=== PATIENT | female | born 1955 | race African-American/Black ===

== ENCOUNTER 2022-06-26 19:10 | Emergency (ER) | payer OTHER ==
[~2022-06-26] VITALS: Ht 170.2 cm; Wt 71.5 kg
[2022-06-26 20:31] LABS: Basophils # (auto) 0 10 ^3/uL (0-0.2); Basophils % (auto) 0.5 % (0.0-2.0); Eosinophils # (auto) 0.2 10 ^3/uL (0-0.8); Eosinophils % (auto) 1.7 % (0.0-7.0); Hemoglobin 13.9 g/dL (12.2-16.2); Lymphocytes # (auto) 3.4 10 ^3/uL (0.4-5.4); Lymphocytes % (auto) 37.4 % (10.0-50.0); Mean Corpuscular Hemoglobin 26.7 pg (28.0-32.0); Mean Corpuscular Volume 78.7 fL (80.0-100.0); Monocytes # (auto) 0.6 10 ^3/uL (0-1.3); Monocytes % (auto) 6.7 % (0.0-12.0); Neutrophils # (auto) 4.9 10 ^3/uL (1.6-8.6); Neutrophils % (auto) 53.7 % (37.0-80.0); Nucleated Red Blood Cells % 0.1 %; Red Blood Cells 5.21 10^6/uL (4.0-5.20); Red Cell Distribution Width 16.1 % (11.8-14.3); White Blood Cell 9.1 10^3/uL (4.4-10.8)
[2022-06-26 20:40] LABS: INR 1.02 (0.9-1.15); Partial Thromboplastin Time 26.4 sec (24.6-33.4)
[2022-06-26 20:53] LABS: Magnesium 2.2 mg/dL (1.6-2.6)
[2022-06-26 20:56] LABS: Urine Bacteria MOD /hpf (None Seen); Urine Blood Negative /uL (Negative); Urine Mucus FEW (None Seen); Urine Specific Gravity 1.021 (1.001-1.035); Urine WBC 1 /hpf (0 - 5)
[2022-06-26 20:59] LABS: Albumin 3.5 g/dL (3.4-5.0); BUN/Creatinine Ratio 12.2; Bilirubin, Total 0.2 mg/dL (0.2-1.0); Calcium 8.9 mg/dL (8.5-10.1); Total Protein 7.6 g/dL (6.4-8.2)
[2022-06-26] MEDS ORDERED: DICY10CA PO (22:28)
[2022-06-26] MEDS ORDERED: DICYCLOMINE HCL (10MG/ML) 2 ML AMPULE IM ONE (22:30)
[2022-06-26 23:13] VITALS: BP 145/80
== END 2022-06-26 23:21 | disposition home or self-care (01) ==
LOC: ER 19:10
DX: K80.20 Calculus of gallbladder without cholecystitis without obstruction (principal)
CPT/HCPCS: 36415; 71045; 74176; 80053; 81001; 82150; 83690; 83735; 85025; 85610; 85730; 93005; 96372; 99285; J0500

== ENCOUNTER 2022-07-01 09:58 | Emergency (ER) | payer OTHER ==
[~2022-07-01] VITALS: Ht 170.2 cm; Wt 72.0 kg
[~2022-07-01 09:58] MED LIST: DICY10CA PO
[2022-07-01 10:54] LABS: Basophils # (auto) 0 10 ^3/uL (0-0.2); Eosinophils # (auto) 0.1 10 ^3/uL (0-0.8); Lymphocytes # (auto) 2.7 10 ^3/uL (0.4-5.4); Nucleated Red Blood Cells % 0.1 %
[2022-07-01 10:56] LABS: Basophils % (auto) 0.5 % (0.0-2.0); Hematocrit 41.2 % (36.0-46.0); Mean Corpuscular Hemoglobin 26.5 pg (28.0-32.0); Mean Corpuscular Hgb Conc. 33.9 g/dL (32.0-36.0); Mean Corpuscular Volume 78.2 fL (80.0-100.0); Monocytes # (auto) 0.6 10 ^3/uL (0-1.3); Monocytes % (auto) 7.5 % (0.0-12.0); Neutrophils # (auto) 4.1 10 ^3/uL (1.6-8.6); Red Blood Cells 5.28 10^6/uL (4.0-5.20); Red Cell Distribution Width 15.9 % (11.8-14.3); White Blood Cell 7.5 10^3/uL (4.4-10.8)
[2022-07-01 10:57] LABS: Albumin 3.7 g/dL (3.4-5.0); Calcium 8.8 mg/dL (8.5-10.1); Potassium 4.3 mmol/L (3.5-5.1)
[2022-07-01 11:01] LABS: BUN/Creatinine Ratio 8.2; Bilirubin, Total 0.3 mg/dL (0.2-1.0); Total Protein 7.4 g/dL (6.4-8.2)
[2022-07-01 13:19] VITALS: BP 127/84
[2022-07-01] MEDS ORDERED: HYDROcodone-ACET 5/325MG TAB PO ONE (15:00)
== END 2022-07-01 14:17 | disposition home or self-care (01) ==
LOC: ER 09:58
DX: K80.20 Calculus of gallbladder without cholecystitis without obstruction (principal)
CPT/HCPCS: 36415; 76705; 80053; 83690; 85025; 93005

== ENCOUNTER 2023-11-26 23:41 | Emergency (ER) | payer OTHER ==
[~2023-11-26] VITALS: Ht 170.2 cm; Wt 72.7 kg
[2023-11-26 23:46] VITALS: BP 154/91; PULSE 93; RESP 18; O2SAT 97
== END 2023-11-27 01:48 | disposition left against medical advice (07) ==
LOC: ER 23:41
DX: M79.602 Pain in left arm (principal); M79.601 Pain in right arm; Z53.21 Procedure and treatment not carried out due to patient leaving prior to being seen by health care provider

== ENCOUNTER 2024-05-05 20:45 | Emergency (ER) | payer OTHER ==
[~2024-05-05] VITALS: Ht 170.2 cm; Wt 70.5 kg
[2024-05-05 22:23] LABS: COVID19 ANTIGEN SOFIA FIA NEGATIVE (NEGATIVE)
[2024-05-05 22:25] LABS: Rapid Influenza A Negative (Negative); Rapid Influenza B Negative (Negative)
[2024-05-06 01:00] VITALS: BP 130/76; PULSE 78; RESP 18; TEMP 98.2; O2SAT 97
== END 2024-05-06 02:05 | disposition home or self-care (01) ==
LOC: ER 20:45
DX: B34.9 Viral infection, unspecified (principal); J44.9 Chronic obstructive pulmonary disease, unspecified; Z20.822 Contact with and (suspected) exposure to COVID-19; Z79.899 Other long term (current) drug therapy
CPT/HCPCS: 36415; 71046; 87426; 87804

== ENCOUNTER 2024-08-01 08:16 | Emergency (ER) | payer OTHER ==
[~2024-08-01] VITALS: Ht 170.2 cm; Wt 70.8 kg
[2024-08-01 08:47] VITALS: BP 141/90; PULSE 90; RESP 17; TEMP 98.3; O2SAT 97
[2024-08-01 09:31] LABS: Basophils # (auto) 0.1 10 ^3/uL (0-0.2); Basophils % (auto) 0.8 % (0.0-2.0); Eosinophils # (auto) 0.1 10 ^3/uL (0-0.8); Eosinophils % (auto) 1.2 % (0.0-7.0); Hematocrit 43.9 % (36.0-46.0); Hemoglobin 14.9 g/dL (12.2-16.2); Lymphocytes # (auto) 3.4 10 ^3/uL (0.4-5.4); Lymphocytes % (auto) 42.4 % (10.0-50.0); Mean Corpuscular Volume 79.2 fL (80.0-100.0); Monocytes # (auto) 0.4 10 ^3/uL (0-1.3); Monocytes % (auto) 5.3 % (0.0-12.0); Neutrophils % (auto) 50.3 % (37.0-80.0); Nucleated Red Blood Cells % 0.2 %; Platelet Count (auto) 242 10^3/uL (140-450); Red Blood Cells 5.53 10^6/uL (4.0-5.20); Red Cell Distribution Width 16.4 % (11.8-14.3); White Blood Cell 7.9 10^3/uL (4.4-10.8)
[2024-08-01 09:35] LABS: Chloride 105 mmol/L (98-107); Potassium 4.2 mmol/L (3.5-5.1); Sodium 140 mmol/L (136-145)
[2024-08-01 09:36] LABS: Anion Gap 7 (5-15); Calcium 10.3 mg/dL (8.7-10.4); Carbon Dioxide 28 mmol/L (20-31)
[2024-08-01 09:41] LABS: BUN/Creatinine Ratio 6.2 (10.0-20.0); Blood Urea Nitrogen 5 mg/dL (9-23); Glucose 131 mg/dL (74-106)
[2024-08-01 10:34] LABS: Urine Bacteria MOD /hpf (None Seen); Urine Blood Negative /uL (Negative); Urine Clarity Clear (Clear); Urine Color Light-Yellow (Yellow); Urine Protein, UAD Negative (Negative); Urine Specific Gravity 1.009 (1.001-1.035); Urine Urobilinogen Normal (Negative); Urine WBC <1 /hpf (0 - 5); Urine pH 5.5 (5.0-9.0)
[2024-08-01] MEDS ORDERED: BACDST PO (10:41)
== END 2024-08-01 10:50 | disposition home or self-care (01) ==
LOC: ER 08:16
DX: L02.92 Furuncle, unspecified (principal); Z48.00 Encounter for change or removal of nonsurgical wound dressing; E11.9 Type 2 diabetes mellitus without complications; E07.9 Disorder of thyroid, unspecified; J44.9 Chronic obstructive pulmonary disease, unspecified; Z79.899 Other long term (current) drug therapy
CPT/HCPCS: 36415; 80048; 81001; 85025

== ENCOUNTER 2025-02-05 17:04 | Emergency (ER) | payer OTHER ==
[~2025-02-05] VITALS: Ht 165.1 cm; Wt 65.0 kg
[~2025-02-05 17:04] MED LIST changes: +BACDST PO
[2025-02-05 18:02] LABS: Basophils # (auto) 0.1 10 ^3/uL (0-0.2); Basophils % (auto) 0.6 % (0.0-2.0); Eosinophils # (auto) 0.1 10 ^3/uL (0-0.8); Eosinophils % (auto) 1.5 % (0.0-7.0); Hematocrit 45.5 % (36.0-46.0); Hemoglobin 16.1 g/dL (12.2-16.2); Lymphocytes # (auto) 3.9 10 ^3/uL (0.4-5.4); Lymphocytes % (auto) 45.2 % (10.0-50.0); Mean Corpuscular Hemoglobin 27.4 pg (28.0-32.0); Mean Corpuscular Hgb Conc. 35.3 g/dL (32.0-36.0); Mean Corpuscular Volume 77.4 fL (80.0-100.0); Monocytes # (auto) 0.7 10 ^3/uL (0-1.3); Monocytes % (auto) 8.6 % (0.0-12.0); Neutrophils # (auto) 3.8 10 ^3/uL (1.6-8.6); Neutrophils % (auto) 44.1 % (37.0-80.0); Nucleated Red Blood Cells % 0.5 %; Platelet Count (auto) 216 10^3/uL (140-450); Red Blood Cells 5.88 10^6/uL (4.0-5.20); Red Cell Distribution Width 16.9 % (11.8-14.3); White Blood Cell 8.6 10^3/uL (4.4-10.8)
[2025-02-05] MEDS: MORPHINE SULFATE 4 MG/ML SYR/VIAL IV ONE (18:16)
[2025-02-05] MEDS: DICYCLOMINE HCL (10MG/ML) 2 ML AMPULE IM ONE (18:16)
[2025-02-05 18:17] LABS: Alanine Aminotransferase 29 U/L (7-40); Albumin 4.8 g/dL (3.2-4.8); Anion Gap 8 (5-15); Aspartate Aminotransferase 24 U/L (13-40); BUN/Creatinine Ratio 10.3 (10.0-20.0); Carbon Dioxide 25 mmol/L (20-31); Glucose 92 mg/dL (74-106); Potassium 4.3 mmol/L (3.5-5.1); Sodium 140 mmol/L (136-145); Total Protein 8.1 g/dL (5.7-8.2)
[2025-02-05] MEDS: ONDANSETRON HCL 4 MG/2 ML VIAL IV ONE (18:17)
[2025-02-05 18:18] LABS: Bilirubin, Total 0.6 mg/dL (0.2-1.0)
[2025-02-05 18:36] LABS: Alkaline Phosphatase 144 U/L (46-116); Blood Urea Nitrogen 7 mg/dL (9-23); Calcium 10.7 mg/dL (8.7-10.4); Chloride 107 mmol/L (98-107)
--- NOTE | 2025-02-05 18:54 | ED.PDOC ---
History of Present Illness HPI Comments 69 y/o F is BIBA for c/o severe lower abdominal pain that radiates to her left lower quadrant starting this morning. Patient describes pain a 10/10 in severity, feeling sena to labor contractions and having no prior history of similar symptoms in the past. Patient states her last bowel movement was this morning and was normal. Patient states she was seen at urgent care earlier today, ultrasound was performed that was nondiagnostic, and was also told that there was some fluid discharge from her umbilical area. She was not aware of the fluid discharge prior to today. Denies any fever, nausea, vomiting or dysuria. She has a history that includes: brain aneurysm, chronic constipation, COPD, DMII, HLD, HTN, cholecystectomy, hernia repair, and hysterectomy. Chief Complaint: Abdominal Pain Time Seen by MD: 17:00 Primary Care Provider: JENNIFER Land Notes: Nurses Notes, Medications, Allergies Allergies: Coded Allergies: NO KNOWN ALLERGIES (Unverified , 07/01/22) Home Meds Active Scripts Sulfamethoxazole W/Trimethopri (Bactrim Ds Tablet) 1 Tab Tb, 1 TAB PO BID for 7 Days, #14 TAB 0 Refills Prov:DANIELLA SARAH MANAGER [facility] 08/01/24 Dicyclomine Hcl (BENTYL CAPSULE) 10 Mg Cp, 1 CAP PO Q6HPRN, #30 CAP 3 Refills Prov:JEREMY BRENNER DO 06/26/22 Information Source: Patient Mode of Arrival: EMS Severity: Moderate Timing: Hours Duration: Since onset Prehospital treatment: 12 Lead EKG, 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, 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 Past Medical History PAST MEDICAL HISTORY: COPD, DM (type II), High Lipids, HTN Past Medical History (Other): chronic constipation brain aneurysm Surgical History: Cholecystectomy, Hernia Repair, Hysterectomy MEDICAL INSURANCE VERIFIER History: No Pertinent MEDICAL INSURANCE VERIFIER History Family History Family History: Reviewed,noncontributory to illness, Unknown Social History Smoker: Non-Smoker Alcohol: Denies ETOH Use Drugs: Denies Drug Use All Other Systems: Reviewed and Negative (Comprehensive systems review obtained and negative except for what is stated in the HPI.) Physical Exam General Appearance: Moderate Distress HEENT: Other (Pupils and face symmetric. Moist mucous membranes.) Neck: Full Range of Motion, Normal Inspection Respiratory: Lungs Clear, No Accessory Muscle Use, No Respiratory Distress, Normal Breath Sounds Cardiovascular: No Edema, No JVD, Regular Rate/Rhythm Breast Exam: Deferred Gastrointestinal: Soft, Tenderness (Suprapubic and left lower quadrant tenderness to palpation. No rebound or guarding. No tenderness to percussion. Minimal clear fluid discharge from umbilical area.) Genitalia: Deferred Pelvic: Deferred Rectal: Deferred Extremities: Normal inspection, Normal range of motion, Non-tender, No pedal edema Neurologic: Alert (Oriented x4), Normal Affect, Normal Mood Cerebellar Function: NOT DONE Reflexes: NOT DONE Skin: Dry, Normal Color, Warm Lymphatic: NOT DONE Was a procedure done? Was a procedure done?: No Differential Dx Considerations may include: Constipation, bowel obstruction, gastroenteritis, colitis, diverticulitis, cystitis, kidney stone, food poisoning, among others X-Ray, Labs, Meds, VS Vital Signs Date Time Temp Pulse Resp B/P (MAP) Pulse Ox O2 Delivery O2 Flow Rate FiO2 02/05/25 20:16 18 98 Room Air* 0 21 02/05/25 20:02 77 16 110/69 (83) 98 02/05/25 19:00 80 18 110/69 02/05/25 18:16 76 15 117/70 02/05/25 17:24 89 02/05/25 17:10 98.1 90 16 120/80 (93) 95 98.1 Lab Test 02/05/25 19:40 02/05/25 17:45 Range/Units Urine Color Yellow Yellow Urine Clarity Clear Clear Urine pH 5.5 5.0-9.0 Urine Specific B[place]ing 1.017 1.001-1.035 Urine Protein Negative Negative Urine Ketones Negative Negative Urine Blood Negative Negative /uL Urine Nitrite Negative Negative Urine Bilirubin Negative Negative Urine Urobilinogen Normal Negative mg/dL Urine Leukocyte Esterase Negative Negative /uL Urine RBC 1 0 - 4 /hpf Urine Microscopic WBC 1 0-5 /HPF Urine Squamous Epithelial Cells Few <5 /hpf Urine Bacteria Mod H None Seen /hpf Urine Hyaline Casts Few 0 - 2 /lpf Urine Glucose 4+ H Normal mg/dL White Blood Count 8.6 4.4-10.8 10^3/uL Red Blood Count 5.88 H 4.0-5.20 10^6/uL Hemoglobin 16.1 12.2-16.2 g/dL Hematocrit 45.5 36.0-46.0 % Mean Corpuscular Volume 77.4 L 80.0-100.0 fL Mean Corpuscular Hemoglobin 27.4 L 28.0-32.0 pg Mean Corpuscular Hemoglobin Concent 35.3 32.0-36.0 g/dL Red Cell Distribution Width 16.9 H 11.8-14.3 % Platelet Count 216 140-450 10^3/uL Mean Platelet Volume 8.3 6.9-10.8 fL Neutrophils (%) (Auto) 44.1 37.0-80.0 % Lymphocytes (%) (Auto) 45.2 10.0-50.0 % Monocytes (%) (Auto) 8.6 0.0-12.0 % Eosinophils (%) (Auto) 1.5 0.0-7.0 % Basophils (%) (Auto) 0.6 0.0-2.0 % Neutrophils # (Auto) 3.8 1.6-8.6 10 ^3/uL Lymphocytes # (Auto) 3.9 0.4-5.4 10 ^3/uL Monocytes # (Auto) 0.7 0-1.3 10 ^3/uL Eosinophils # (Auto) 0.1 0-0.8 10 ^3/uL Basophils # (Auto) 0.1 0-0.2 10 ^3/uL Nucleated Red Blood Cells 0.5 % Sodium Level 140 136-145 mmol/L Potassium Level 4.3 3.5-5.1 mmol/L Chloride Level 107 98-107 mmol/L Carbon Dioxide Level 25 20-31 mmol/L Anion Gap 8 5-15 Blood Urea Nitrogen 7 L 9-23 mg/dL Creatinine 0.68 0.550-1.02 mg/dL Glomerular Filtration Rate Calc 95 >90 mL/min BUN/Creatinine Ratio 10.3 10.0-20.0 Serum Glucose 92 74-106 mg/dL Lactic Acid Level 1.3 0.4-2.0 mmol/L Calcium Level 10.7 H 8.7-10.4 mg/dL Total Bilirubin 0.6 0.2-1.0 mg/dL Aspartate Amino Transferase (AST) 24 13-40 U/L Alanine Aminotransferase (ALT) 29 7-40 U/L Alkaline Phosphatase 144 H 46-116 U/L Total Protein 8.1 5.7-8.2 g/dL Albumin 4.8 3.2-4.8 g/dL Current Medications Medications (Trade) Dose Ordered Sig/Dandy Route Start Time Stop Time Status Last Admin Morphine Sulfate 4 mg ONCE ONCE IV 02/05/25 17:30 02/05/25 17:31 DC 02/05/25 18:16 Ondansetron HCl (Zofran) 4 mg ONCE ONCE IV 02/05/25 17:30 02/05/25 17:31 DC 02/05/25 18:17 Dicyclomine HCl (Bentyl Injection) 20 mg ONCE ONCE IM 02/05/25 17:30 02/05/25 17:31 DC 02/05/25 18:16 PROCEDURE(s): ABPL - CT AB PEL WO CON-NO ORAL OR IV REASON: severe low abd pain, fluid d/c from umbilicus ORDER NUMBER(s): [id number], ACCESSION NUMBER(s): [id number] Exam: CT CT AB PEL WO CON-NO ORAL OR IV History: severe low abd pain, fluid d/c from umbilicus Comparison Study: CT ABD PELVIS WO CONTRAST on DOS: 06/26/22None available at shae e of dictation. TECHNIQUE: Multidetector CT of the abdomen and pelvis without IV contrast. Axial, coronal and sagittal multiplanar reformats were obtained from the axial data set by the technologist. Radiation Dose Information: CT Dose: CTDI volume is 6.97 mGy. Dose-length product is 333.5 mGy*cm FINDINGS: Bibasilar atelectasis. Partially visualized heart is normal in size. Mild hepatomegaly with hepatic steatosis. Status post cholecystectomy. Spleen, multiple subcentimeter hypodense lesions within the pancreas ; relatively unchanged from 2021. Bilateral adrenal glands are unremarkable. Punctate nonobstructing left renal lower pole calculus. Otherwise, kidneys, ureters and urinary bladder unremarkable. Status post hysterectomy. Phleboliths are noted within the pelvis. Mild gastric wall thickening. Small bowel loops unremarkable. Appendix is unremarkable. Moderate to large amount of fecal material within the colon. No evidence of intraperitoneal free air or free fluid. No evidence of aortic aneurysm. [id number] atherosclerotic calcification of the aorta and bilateral iliacs. No significant lymphadenopathy. Soft tissues unremarkable. No destructive osseous lesions are noted. Sclerotic focus over the left iliac bone which may represent a bone island/blastic lesion. IMPRESSION: No evidence of acute abdominopelvic abnormalities.Mild Hepatomegaly with hepatic steatosis. Constipation. Punctate hypodense pancreatic lesions ; relatively unchanged from 2021. Nonobstructing left renal calculus. X-Ray, Labs, Meds, VS Comment 69-year-old female with history of brain aneurysms, chronic constipation, COPD, DMII, HLD, HTN, complaining of lower abdominal pain Vitals unremarkable Exam remarkable for lower abdominal tenderness to palpation, no rebound or guarding, no tenderness to percussion Rhythm strip independently interpreted by me: Sinus rhythm, rate 90, no ectopy. CT abdomen and pelvis IMPRESSION: No evidence of acute abdominopelvic abnormalities.Mild Hepatomegaly with hepatic steatosis. Constipation. Punctate hypodense pancreatic lesions ; relatively unchanged from 2021. Nonobstructing left renal calculus. CBC and CMP unremarkable for any abnormality of acute significance, lactate normal, UA shows moderate bacteria and 4+ glucose Patient treated with the following in the ED: Morphine 4 mg IV, Zofran 4 mg IV, Bentyl 20 mg IM, Rocephin 1 g IV On re-evaluation, patient states pain has improved. Vitals were stable. Repeat abdominal exam is benign. Patient appears stable for outpatient treatment with pain medications, and oral antibiotics for treatment of possible UTI. Patient also advised to follow-up with her primary physician for referral for GI and/or surgical evaluation. Fluid discharge from umbilicus does not appear infectious, however may be due to a possible fistula, as patient has had multiple abdominal surgeries. Rx Bentyl, Tylenol, Keflex Time of 1ST Reevaluation: 17:30 Reevaluation 1ST: Unchanged Time of 2ND Reevaluation: 21:09 Reevaluation 2ND: Improved Patient Education/Counseling: Diagnosis, Treatment Family Education/Counseling: No Family Present Departure 1 Departure Time of Disposition: 21:11 Impression: Primary Impression: Abdominal pain Qualified Codes: R10.30 - Lower abdominal pain, unspecified Additional Impression: UTI (urinary tract infection) Qualified Codes: N39.0 - Urinary tract infection, site not specified Disposition: HOME / SELF CARE / HOMELESS Condition: Stable Additional Instructions: Your blood tests were essentially unremarkable. Your urine test showed bacteri a, which may indicate you have a urinary tract infection. I have prescribed antibiotics and pain medication. Your CT scan did not show any obvious abnormality that would explain your symptoms, other than possibly constipation that may have caused abdominal cramping. I have enclosed the report below. Follow-up with your primary doctor in 1-2 days for referral to a GI specialist and/or general surgeon for evaluation of the fluid discharge from your umbilicus. PROCEDURE(s): ABPL - CT AB PEL WO CON-NO ORAL OR IV REASON: severe low abd pain, fluid d/c from umbilicus ORDER NUMBER(s): [id number], ACCESSION NUMBER(s): [id number] Exam: CT CT AB PEL WO CON-NO ORAL OR IV History: severe low abd pain, fluid d/c from umbilicus Comparison Study: CT ABD PELVIS WO CONTRAST on DOS: 06/26/22None available at time of dictation. TECHNIQUE: Multidetector CT of the abdomen and pelvis without IV contrast. Axial, coronal and sagittal multiplanar reformats were obtained from the axial data set by the technologist. Radiation Dose Information: CT Dose: CTDI volume is 6.97 mGy. Dose-length product is 333.5 mGy*cm FINDINGS: Bibasilar atelectasis. Partially visualized heart is normal in size. Mild hepatomegaly with hepatic steatosis. Status post cholecystectomy. Spleen, multiple subcentimeter hypodense lesions within the pancreas ; relatively unchanged from 2021. Bilateral adrenal glands are unremarkable. Punctate nonobstructing left renal lower pole calculus. Otherwise, kidneys, ureters and urinary bladder unremarkable. Status post hysterectomy. Phleboliths are noted within the pelvis. Mild gastric wall thickening. Small bowel loops unremarkable. Appendix is unremarkable. Moderate to large amount of fecal material within the colon. No evidence of intraperitoneal free air or free fluid. No evidence of aortic aneurysm. [id number] atherosclerotic calcification of the aorta and bilateral iliacs. No significant lymphadenopathy. Soft tissues unremarkable. No destructive osseous lesions are noted. Sclerotic focus over the left iliac bone which may represent a bone island/blastic lesion. IMPRESSION: No evidence of acute abdominopelvic abnormalities.Mild Hepatomegaly with hepatic steatosis. Constipation. Punctate hypodense pancreatic lesions ; relatively unchanged from 2021. Nonobstructing left renal calculus. e-Prescriptions Cephalexin Monohydrate (Cephalexin) 500 Mg Cap 1 CAP PO QID for 10 Days, #40 CAP Prov: NIRU TAYLOR MD 02/05/25 Docusate Sodium (Colace) 100 Mg Cap 1 CAP PO HS PRN, #30 CAP prn constipation Prov: NIRU TAYLOR MD 02/05/25 Dicyclomine Hcl (BENTYL CAPSULE) 10 Mg Cp 2 CAP PO Q6HPRN PRN, #30 CAP 11 Refills prn abdominal pain Prov: NIRU TAYLOR MD 02/05/25 Acetaminophen (Tylenol Extra Strength) 500 Mg Tab 1000 MG PO Q6HP PRN, #30 TAB prn pain Prov: NIRU TAYLOR MD 02/05/25 Discharged With: Relative Critical Care Note Critical Care Time?: No Stability Stability form required: No Heart Score Heart Score: Heart Score Response (Comments) Value History N/A 0 EKG N/A 0 Age N/A 0 Risk Factors N/A 0 Troponin N/A 0 Total 0 I personally scribed for NIRU TAYLOR MD ([email or web address]) on 02/05/25 at 18:54. Electronically submitted by Napoleon Ramirez ([email or web address]). I personally scribed for NIRU TAYLOR MD ([email or web address]) on 02/05/25 at 20:16. Electronically submitted by Napoleon Ramirez [email or web address]). NIRU TAYLOR MD February 05, 2025 18:54
[2025-02-05 20:01] LABS: Urine Bacteria MOD /hpf (None Seen); Urine Blood Negative /uL (Negative); Urine Clarity Clear (Clear); Urine Color Yellow (Yellow); Urine Hyaline Cast FEW /lpf (0 - 2); Urine Protein, UAD Negative (Negative); Urine Specific Gravity 1.017 (1.001-1.035); Urine Squamous Epithelial Cell FEW /hpf (<5); Urine Urobilinogen Normal (Negative); Urine WBC 1 /HPF (0-5); Urine pH 5.5 (5.0-9.0)
--- NOTE | 2025-02-05 20:10 | DVH ---
Exam: CT CT AB PEL WO CON-NO ORAL OR IV History: severe low abd pain, fluid d/c from umbilicus Comparison Study: CT ABD PELVIS WO CONTRAST on DOS: 06/26/22None available at time of dictation. TECHNIQUE: Multidetector CT of the abdomen and pelvis without IV contrast. Axial, coronal and sagitta l multiplanar reformats were obtained from the axial data set by the technologist. Radiation Dose Information: CT Dose: CTDI volume is 6.97 mGy. Dose-length product is 333.5 mGy*cm FINDINGS: Bibasilar atelectasis. Partially visualized heart is normal in size. Mild hepatomegaly with hepatic steatosis. Status post cholecystectomy. Spleen, multiple subcentimeter hypodense lesions within the pancreas ; relatively unchanged from 2021. Bilateral adrenal glands are unremarkable. Punctate nonobstructing left renal lower pole calculus. Otherwise, kidneys, ureters and urinary bladd er unremarkable. Status post hysterectomy. Phleboliths are noted within the pelvis. Mild gastric wall thickening. Small bowel loops unremarkable. Appendix is unremarkable. Moderate to large amount of fecal material within the colon. No evidence of intraperitoneal free air or free fluid. No evidence of aortic aneurysm. [id number] atherosclerotic calcification of the aorta and bila teral iliacs. No significant lymphadenopathy. Soft tissues unremarkable. No destructive osseous lesions are noted. Sclerotic focus over the left il iac bone which may represent a bone island/blastic lesion. IMPRESSION: No evidence of acute abdominopelvic abnormalities.Mild Hepatomegaly with hepatic steatosis. Constipation. Punctate hypodense pancreatic lesions ; relatively unchanged from 2021. Nonobstructing left renal calculus.
[2025-02-05 20:16] VITALS: RESP 18; O2SAT 98
[2025-02-05] MEDS ORDERED: CEPH500C PO (21:19)
[2025-02-05] MEDS ORDERED: ACET-1304 PO (21:19)
[2025-02-05] MEDS ORDERED: DICY10CA PO (21:19)
[2025-02-05] MEDS ORDERED: DOCU-94 PO (21:19)
[2025-02-05 22:29] VITALS: BP 129/81; PULSE 86; RESP 20; TEMP 98.4; O2SAT 96
[2025-02-05] MEDS: cefTRIAXone 1GM/50ML D5W 50 ML IV ONE (22:30)
--- NOTE | 2025-02-07 12:43 | ECG ---
[facility] Test Date: 2025-02-05 Test Time: 17:24:07 Pat Name: SILVIO LU Department: ED Room: Gender: F Ems Instructor: TOYA : 1955 Requested By: NIRU VALDEZ Order Number: [id number] Reading MD: Scooter Waters Measurements Intervals Bracey Rate: 89 P: 73 VT: 165 QRS: 7 QRSD: 91 T: 67 QT: 393 QTc: 479 Interpretive Statements Sinus rhythm Left atrial enlargement Baseline wander in lead(s) V2 Electronically Signed On 02-07-2025 21:16:02 PDT by Scooter Waters Please click the below link to view image of tracing.
== END 2025-02-05 23:37 | disposition home or self-care (01) ==
LOC: ER 17:04 → EDBD 17:04 → ER 23:37
DX: R10.32 Left lower quadrant pain (principal); N39.0 Urinary tract infection, site not specified; J44.9 Chronic obstructive pulmonary disease, unspecified; E11.9 Type 2 diabetes mellitus without complications; E78.5 Hyperlipidemia, unspecified; I10 Essential (primary) hypertension; K59.00 Constipation, unspecified; Z98.890 Other specified postprocedural states; Z90.710 Acquired absence of both cervix and uterus; Z90.49 Acquired absence of other specified parts of digestive tract
CPT/HCPCS: 36415; 74176; 80053; 81001; 83605; 85025; 87040; 96365; 96372; 96375; 99285; J0500; J0696; J2270; J2405; 93005

== ENCOUNTER 2025-04-11 09:37 | Emergency (ER) | payer OTHER ==
[~2025-04-11] VITALS: Ht 170.2 cm; Wt 63.3 kg
[~2025-04-11 09:37] MED LIST changes: +ACET-1304 PO; +CEPH500C PO; +DOCU-94 PO
--- NOTE | 2025-04-11 10:24 | ED.PDOC ---
HPI (NEURO) HPI Comments 69 y/o F, with PMHx of anxiety, COPD, DM, HLD, and HTN presents to the ED for CC of headache. Patient states, she has been experiencing a generalized headache x2days following, an aneurysm repair through her groin x1week ago. Patient reports, calling [facility] where repair was preformed and being relayed to the ED for a further evaluation of symptoms. 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 Patient denies blurred vision, difficulty talking, changes in gait, numbness, weakness, or chest pain. No other associated symptoms, modifiers, recent injuries or sick contacts present at this time. Chief Complaint: Headache Time Seen by MD: 10:05 Primary Care Provider: S[facility]ANNA DELGADO Reviewed Notes: Nurses Notes, Medications, Allergies Information Source: Patient Mode of Arrival: Ambulatory Severity: Moderate Dizziness/Weakness Severity: Does not affect activitie Headache Severity: Moderate Timing: Days Duration: Since onset Prehospital treatment: None Headache Location: Generalized Onset: At rest Circumstances: Other (recent aneurysm repair) Symptoms: None Before: Normal During: Awake After: Normal Mentation History of: None Modifying factors: Nothing Associated Signs and Symptoms: Headache Past Medical History PAST MEDICAL HISTORY: Anxiety, COPD, DM, High Lipids, HTN Surgical History: Cholecystectomy, Hernia Repair, Hysterectomy LABEL CODER History: No Pertinent LABEL CODER History Family History Family History: Reviewed,noncontributory to illness, Unknown Social History Smoker: Non-Smoker Alcohol: Denies ETOH Use Drugs: Denies Drug Use Lives In: Home Constitutional: denies: chills, diaphoresis, fatigue, fever, malaise, sweats, weakness, others EENTM: denies: blurred vision, double vision, ear bleeding, ear discharge, ear drainage, ear pain, ear ringing, eye pain, eye redness, hearing loss, mouth pain, mouth swelling, nasal discharge, nose bleeding, nose congestion, nose pain, photophobia, tearing, throat pain, throat swelling, voice changes, others Respiratory: denies: cough, hemoptysis, orthopnea, SOB at rest, shortness of breath, SOB with excertion, stridor, wheezing, others Cardiovascular: denies: chest pain, dizzy spells, diaphoresis, Dyspnea on exertion, edema, irregular heart beat, left arm pain, lightheadedness, palpitations, PND, syncope, others Gastrointestinal: denies: abdomen distended, abdominal pain, blood streaked bowels, constipated, diarrhea, dysphagia, difficulty swallowing, hematemesis, melena, nausea, poor appetite, poor fluid intake, rectal bleeding, rectal pain, vomiting, others Genitourinary: denies: abnormal vagina bleeding, burning, dyspareunia, dysuria, flank pain, frequency, hematuria, incontinence, pain, , vagina discharge, urgency, others Neurological: reports: headache; denies: dizziness, fainting, left sided numbness, left sided weakness, numbness, paresthesia, pre-existing deficit, right sided numbness, right sided weakness, seizure, speech problems, tingling, tremors, weakness, others Musculoskeletal: denies: back pain, gout, joint pain, joint swelling, muscle pain, muscle stiffness, neck pain, others Integumetry: denies: bruises, change in color, change in hair/nails, dryness, laceration, lesions, lumps, rash, wounds, others Allergic/Immunocompromised: denies: Difficulty Healing, Frequent Infections, Hives, Itching, others Hematologic/Lymphatic: denies: anemia, blood clots, easy bleeding, easy bruising, swollen glands, others Endocrine: denies: excessive hunger, excessive sweating, excessive thirst, excessive urination, flushing, intolerance to cold, intolerance to heat, unexplained weight gain, unexplained weight loss, others Psychiatric: denies: anxiety, bipolar disorder, depression, hopeless, panic disorder, schizophrenia, sleepless, suicidal, others All Other Systems: Reviewed and Negative Physical Exam General Appearance: No Apparent Distress, Normal HEENT: Normal ENT Inspection, Pharynx Normal Neck: Full Range of Motion, Non-Tender, Normal, Normal Inspection Respiratory: Chest Non-Tender, Lungs Clear, No Accessory Muscle Use, No Respiratory Distress, Normal Breath Sounds Cardiovascular: No Edema, No JVD, No Murmur, No Gallop, Normal Peripheral Pu lses, Regular Rate/Rhythm Breast Exam: Deferred Gastrointestinal: No Organomegaly, Non Tender, No Pulsatile Mass, Normal Bowel Sounds, Soft Genitalia: Deferred Pelvic: Deferred Rectal: Deferred Extremities: No calf tenderness, Normal capillary refill, Normal inspection, Normal range of motion, Non-tender, No pedal edema Musculoskeletal : Apperance: Normal Neurologic: Alert, 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 Was a procedure done?: No Differential Diagnosis (SZ) Headache: Cluster, Migraine, Epidural Hemorrhage, Subarachnoid Hemorrhage, Subdural Hemorrhage X-Ray, Labs, Meds, VS Vital Signs Date Time Temp Pulse Resp B/P (MAP) Pulse Ox O2 Delivery O2 Flow Rate FiO2 04/11/25 13:35 97 17 100 Room Air 04/11/25 13:35 98.3 97 17 132/74 (93) 100 98.3 04/11/25 12:22 84 14 98 Room Air* 0 21 04/11/25 09:42 98.2 102 18 139/68 (91) 97 98.2 Current Medications Medications (Trade) Dose Ordered Sig/Dandy Route Start Time Stop Time Status Last Admin Sodium Chloride 1,000 ml @ 1,000 mls/hr Q1H ONCE IV 04/11/25 12:00 04/11/25 12:59 DC 04/11/25 12:35 Acetaminophen (Tylenol Tablet) 650 mg ONCE ONCE PO 04/11/25 12:00 04/11/25 12:24 DC 04/11/25 12:36 Metoclopramide HCl (Reglan Injection) 10 mg ONCE ONCE IV 04/11/25 12:00 04/11/25 12:24 DC 04/11/25 12:36 Lorazepam (Ativan Tablet) 1 mg ONCE ONCE PO 04/11/25 12:30 04/11/25 12:31 DC 04/11/25 12:36 [place] [address] Ph: [phone] DIAGNOSTIC IMAGING Diagnostic Imaging Report : [id number] Signed PATIENT: SILVIO LU AKZENIAACCT: [id number] UNIT: [id number] : 1955 LOC: ER ROOM / BED: / AGE / SEX: 69 / F ADM STATUS: REG ER SERVICE 1006 ORDERING PHYSICIAN: MONIK JOHNSON MD PROCEDURE(s): HWOCT - HEAD WITHOUT CONTRAST REASON: headache, recent aneursym clipping ORDER NUMBER(s): [id number], ACCESSION NUMBER(s): [id number] EXAM: CT HEAD WITHOUT CONTRAST INDICATION: headache, recent aneursym clipping TECHNIQUE: CT of the head without intravenous contrast. Radiation Dose : 1. Head: CT Dose: CTDI volume is 53 mGy. Dose-length product is 917 mG y*cm The dose indicators for CT are the volume Computed Tomography (CT) Dose Index (CTDIvol) and the Dose Length Product (DLP), and are measured in units of mGy and mGy-cm, respectively. These indicators are not patient dose, but values generated from the CT scanner acquisition factors. The report includes radiation exposure data for exposures received during this examination. COMPARISON: None FINDINGS: Metallic coils are seen in the region of the ZEKE and possibly in the region of the left MCA. There is no evidence of acute intracranial hemorrhage, extra-axial collection, mass effect, midline shift, herniation or hydrocephalus. The ventricles, sulci and cisterns are age appropriate. The pederson-white differentiation is intact. Patchy periventricular and subcortical white matter hypoattenuation is nonspecific but may be related to small vessel ischemic disease. The visualized paranasal sinuses and mastoid air cells are clear. The surrounding soft tissues and osseous structures are unremarkable. IMPRESSION: 1. No acute intracranial abnormality. Radiation optimization: All CT scans at this facility use at least one of these dose optimization techniques: automated exposure control mA and/or kV adjustment per patient size (includes targeted exams where dose is matched to clinical indication) or iterative reconstruction. ATED BY: KIARA MOSHER MD DICTATED DATE/TIME: 04/11/25 1034 SIGNED BY: KIARA MOSHER MD SIGNED DATE/TIME: 04/11/254 CC: Time of 1ST Reevaluation: 10:35 Reevaluation 1ST: Unchanged Patient Education/Counseling: Diagnosis, Treatment Family Education/Counseling: No Family Present Departure 1 Departure Time of Disposition: 14:55 ([address] brain is benign. Discussed with the [facility] who reports they are at capacity and can not accept the patient's were any reason other than trauma. Patient was accepted to [facility] by Dr. Skinner.) Impression: Primary Impression: Intractable migraine Qualified Codes: G43.019 - Migraine without aura, intractable, without status migrainosus Additional Impression: Status post coil embolization of cerebral aneurysm Disposition: 02 SHORT TERM HOSPITAL Condition: Guarded Critical Care Note Critical Care Time?: Yes Critical care comment: Concern for CVA Authorized and Performed by: Monik Johnson MD Total critical care time: Approximately 39 minutes Due to a high probability of clinically significant, life threatening deterioration, the patient required my highest level of preparedness to intervene emergently and I personally spent this critical care time directly and personally managing the patient. This critical care time included obtaining a history; examining the patient; pulse oximetry; ordering and review of studies; arranging urgent treatment with development of a management plan; evaluation of patient's response to treatment; frequent reassessment; and, discussions with o ther providers. This critical care time was performed to assess and manage the high probability of imminent, life-threatening deterioration that could result in multi-organ failure. It was exclusive of separately billable procedures and treating other patients and teaching time. Please see my other sections and the rest of the note for further information on patient assessment and treatment. Stability Stability form required: No Heart Score Heart Score: Heart Score Response (Comments) Value History N/A 0 EKG N/A 0 Age N/A 0 Risk Factors N/A 0 Troponin N/A 0 Total 0 I personally scribed for MONIK JOHNSON MD ([email or web address]) on 04/11/25 at 10:24. Electronically submitted by Amy Brown ([email or web address]). I personally scribed for MONIK JOHNSON MD ([email or web address]) on 04/11/25 at 10:48. Electronically submitted by Amy Brown ([email or web address]). I personally scribed for MONIK JOHNSON MD ([email or web address]) on 04/11/25 at 10:49. Electronically submitted by Amy Brown ([email or web address]). MONIK JOHNSON MD Apr 11, 2025 10:24
--- NOTE | 2025-04-11 10:37 | DVH ---
EXAM: CT HEAD WITHOUT CONTRAST INDICATION: headache, recent aneursym clipping TECHNIQUE: CT of the head without intravenous contrast. Radiation Dose : 1. Head: CT Dose: CTDI volume is 53 mGy. Dose-length product is 917 mGy*cm The dose indicators for CT are the volume Computed Tomography (CT) Dose Index (CTDIvol) and the Dose Length Product (DLP), and are measured in units of mGy and mGy-cm, respectively. These indicators are not patient dose, but values generated from the CT scanner acquisition factors. The report includes radiation exposure data for exposures received during this examination. COMPARISON: None FINDINGS: Metallic coils are seen in the region of the ZEKE and possibly in the region of the left MCA. There is no evidence of acute intracranial hemorrhage, extra-axial collection, mass effect, midline s hift, herniation or hydrocephalus. The ventricles, sulci and cisterns are age appropriate. The pederson-white differentiation is intact. Patchy periventricular and subcortical white matter hypoattenuation is nonspecific but may be related to small vessel ischemic disease. The visualized paranasal sinuses and mastoid air cells are clear. The surrounding soft tissues and osseous structures are unremarkable. IMPRESSION: 1. No acute intracranial abnormality. Radiation optimization: All CT scans at this facility use at least one of these dose optimization tato hniques: automated exposure control mA and/or kV adjustment per patient size (includes targeted exam s where dose is matched to clinical indication) or iterative reconstruction.
[2025-04-11 12:22] VITALS: PULSE 84; RESP 14; O2SAT 98
[2025-04-11] MEDS: SODIUM CHLORIDE 0.9% 1,000 ML IV ONE (12:35)
[2025-04-11] MEDS: LORazepam 0.5 MG TAB PO ONE (12:36)
[2025-04-11] MEDS: ACETAMINOPHEN 325 MG TAB PO ONE (12:36)
[2025-04-11] MEDS: METOCLOPRAMIDE HCL 5MG/ml INJ 2ml VIAL IV ONE (12:36)
[2025-04-11 15:56] VITALS: BP 143/75; PULSE 103; RESP 16; TEMP 98.5; O2SAT 100
== END 2025-04-11 16:00 | disposition short-term general hospital (02) ==
LOC: ER 09:37
DX: G43.019 Migraine without aura, intractable, without status migrainosus (principal); F41.9 Anxiety disorder, unspecified; E11.9 Type 2 diabetes mellitus without complications; E78.5 Hyperlipidemia, unspecified; I10 Essential (primary) hypertension; J44.9 Chronic obstructive pulmonary disease, unspecified; Z95.828 Presence of other vascular implants and grafts; Z90.49 Acquired absence of other specified parts of digestive tract; Z90.710 Acquired absence of both cervix and uterus; Z98.890 Other specified postprocedural states
CPT/HCPCS: 70450; 96361; 96374; 99285; J2765; J7030